=== PATIENT | male | born 1955 | race Caucasian/White ===

== ENCOUNTER 2017-08-23 12:30 | Emergency (ER) | payer BC ==
[~2017-08-23] VITALS: Ht 172.7 cm; Wt 86.2 kg
[~2017-08-23 12:30] MED LIST: ETODOLAC400 MG PO
--- NOTE | 2017-08-23 12:51 | Emergency Room Report ---
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 N Clinical Suspician of Infection? N Mental Status: 1 - Regular (Normal Baseline) Sepsis Risk:Low Sepsis Risk Have you (or family members/close friends) recently traveled outside the [place]? N If Yes, where/when: Have you had exposure to infectious disease within the past month? N TB? Other? Specify: 61 years old white male smoker chronic obstructive pulmonary disease hypertensive. Taking his blood pressure medicine 2 years ago. He developed one- week history of pain dull in character in between the shoulder blades radiating across his upper abdomen. It is occasionally worse with deep breath. He denies nausea vomiting or diarrhea. He denies palpitations or excessive shorts of breath. He had multiple surgeries for hernia and carpal tunnel syndrome. Source patient, RN notes reviewed, family, old records Exam Limitations no limitations ALLERGIES Coded Allergies: Penicillins (Intermediate, I-RASH 06/14/16) History Medical History General CAD? No Angina: No LA: No Hypertension? Yes Hyperlipidemia? No CHF? No DVT? No PE? No COPD? Yes Asthma? Yes Anemia? No GERD? No Gastric ulcers? No GI Bleed? No Hernia? Yes Thyroid Problems? Yes Hypothyroidism? Yes CVA? No Seizures? No Diabetes? No Renal Insuffiency? No End Stage Renal Disease? No UTI? No Stones? No BPH? No GB Disease: No Nephritic Syndrome? No Asplenia? No Hepatitis? No Sickle Cell Disease? No Arthritis? No Migraines? No Cataracts? No Glaucoma? No MRSA? No HIV? No TB? No Anxiety? No Depression? No Cancer? Yes Site: SKIN/FACE More? 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 Respiratory no symptoms reported Cardiovascular see HPI, chest pain Gastrointestinal no symptoms reported Genitourinary no symptoms reported. Musculoskeletal no symptoms reported Skin no symptoms reported Psychiatric/Neurological no symptoms reported Physical Exam Vital Signs Vital Signs Date Time Temp Pulse Resp B/P Pulse O2 O2 Flow FiO2 Ox Delivery Rate 08/23 1525 99.0 98 18 128/99 96 08/23 1449 99.0 98 18 128/99 96 08/23 1404 99.0 98 18 109/91 96 08/23 1326 98 18 109/91 96 08/23 1231 99.0 98 18 140/107 96 - WBC >12,000 or <4,000 or 10% bands? 2 or more SIRS Criteria Met? B/P:140/107 MAP:118 Creatinine >2.0? UA output<0.5ml/kg/hr for 2 hrs? Platelet count >100,000? Lactate >2.0mmol/1? INR >1.2 or PTT > than 60 sec? Evidence of Organ Dysfunction? Provider documented clinical suspician of infection? N Sepsis Criteria Count: 1 Sepsis Risk: Low Sepsis Risk General Appearance normal appearance, WD/WN Eye Exam - bilateral eye normal exam, bilateral eye PERRL, bilateral eye EOMI Ear, Nose, Throat hearing grossly normal, normal ENT inspection Neck normal inspection, non-tender, supple, full range of motion Respiratory Status Yes: trachea midline, chest symmetrical, non tender chest. No: respiratory distress. Lung Sounds bilateral: normal breath sounds, lungs clear. Cardiovascular normal exam, regular rate/rhythm, no peripheral edema, no gallop, no JVD, no murmur, no rub, normal peripheral pulses Peripheral Pulses Pulses normal Yes Gastrointestinal normal bowel sounds, normal exam, non tender, soft, no organomegaly Back normal inspection, no CVA tenderness, no vertebral tenderness Extremities non-tender, normal range of motion, normal inspection Neurologic alert, sampler radioactive waste II-XII nml as tested, normal exam, oriented x 3 Mental status normal mood/affect Skin intact, normal color, warm/dry, scars of prior surgeries Medical Decision Making LABS/Meds/Orders Pt receiving controlled substance in ED? No Results/Orders Laboratory Tests 08/23/17 1235: Lipase 119 08/23/17 1235: Sodium 135 L, Potassium 4.1, Chloride 100, Carbon Dioxide 27, BUN 8, Creatinine 1.0, Estimated Creat Clear 95, Estimated GFR (MDRD) 76, Glucose 99, Calcium 9.0, Total Bilirubin 0.7, AST 40 H, ALT 73, Alkaline Phosphatase 94, Creatine Kinase 90, CK-MB (CK-2) Rel Index 1.7, CK and CKMB Interp 1.5, Troponin I < 0.02, Total Protein 7.5, Albumin 3.8, Globulin 3.7 H, Albumin/Globulin Ratio 1.0 L, WBC 10.2, RBC 5.45, Hgb 17.8, Hct 52.9 H, MCV 97.0, RDW 14.0, Plt Count 202, Gran % 71.9, Gran # 7.3, Lymphocytes % 23.2, Monocytes % 4.9, Lymphocytes # 2.4, Monocytes # 0.5, PUBS MCHC 33.6, MCH 32.7 H Current Medication Orders Sig/Mahad Start time Last Medication Dose Route Stop Time Status Admin Albuterol/Ipratropium 0 .STK-MED ONE 08/23 1507 DC INH Iopamidol 75 ML ONCE ONE 08/23 1430 DC 08/23 IV 08/23 1431 1427 Sodium Chloride 10 ML ONCE ONE 08/23 1430 DC 08/23 IV 08/23 1431 1427 Metoprolol Tartrate 5 MG ONCE ONE 08/23 1300 DC 08/23 IV 08/23 1301 1337 Sodium Chloride 10 ML PRN PRN 08/23 1245 DCD IV 08/24 1239 Orders Procedure Date/time Status DIET-NOTHING BY MOUTH 08/23 D Active LIPASE 08/[address] CHEST SCAN REQ 08/[address] ABD/PELVIS REQ 08/23 1248 Complete ELECTROCARDIOGRAM REQUEST 08/23 1239 Active IV SALINE LOCK 08/23 1239 Active CBC WITH AUTO DIFF 08/23 1239 Complete CARDIAC ENZYMES 08/23 1239 Complete CHEM 12 PROFILE 08/23 1239 Complete 12 LEAD EKG-HENOKSON (INITIAL) 08/23 UNK Active CM/EKG CM/EKG EKG normal sinus is an 81/m no acute findings Departure Departure Time of Disposition 1455 Disposition DC Home or Self Care(routine) Clinical Impression Primary Impression: COPD (chronic obstructive pulmonary disease) Secondary Impressions: Atypical chest pain, Bladder disorder, unspecified, Spigelian hernia Condition STABLE Referrals MARIE NASH Additional Instructions I discussed with the patient or CTs abnormalities and details. I advised him for daily aspirin and a use a Combivent inhaler. He is alert and continued to stop smoking. He will be scheduled for an outpatient stress test in the morning. I advised him to see a urology and Gen. surgery for evaluation of the CT abnormalities. The patient and his verbalize understanding with the above discharge plan, he understands that he is still undergoing workup as an outpatient and to return if he is worse. Dr. jefferson Discharge Counseling Counseled pt/family regarding diagnosis, test results, medications/RX, home care, follow up needs Prescriptions Current Visit Scripts Aspirin (Aspirin Ec) 325 MG PO DAILY #30 ECT ALBUTEROL-IPRATROPIUM (Combivent Inhaler) 1 PUFFS IN Q12 #1 INH Ref 2 ED Critical Care Critical Care No If Critical Care minutes are documented, the time involved in the performance of seperately reportable procedures was not counted toward critical care time documented. I directly delivered medical care to this critically ill and/or injured patient. Timely evaluation and treatment was necessary to address the significant organ system(s) dysfunction present in this patient.
[2017-08-23 12:53] LABS: HEMOGLOBIN 17.8 g/dL (14.1-18.0)
[2017-08-23 12:54] LABS: LYMPH % 23.2 % (10-50)
[2017-08-23 12:55] LABS: LYMPH # 2.4 K/mm3 (0.7-4.5)
[2017-08-23 14:00] LABS: BUN 8 mg/dL (7-18)
[2017-08-23 14:01] LABS: GFR (ESTIMATED) 76 ML/MIN (>60)
--- NOTE | 2017-08-23 14:41 | RADIOLOGY REPORT PS360 ---
CT CHEST W/ CONTRAST INDICATION: Chest pain, pain between shoulder blades, upper abdominal pain UPPER ABD PAIN,CHEST PAIN,BETWEEN SHOULDER BLADES,HTN ORDERING PHYSICIAN: Maribel Preston MD PATIENT AGE: 61 years COMPARISON: 04/06/2014 TECHNIQUE: Axial images are obtained with contrast. Sagittal and coronal reformatted images are reviewed as well. FINDINGS: There is no evidence of aortic aneurysm or dissection. Atheromatous calcification involves the aortic arch. No mediastinal or hilar mass. No evidence of central pulmonary embolus although the study is not tailored for the ulnar arteries. There are minimal atelectatic changes in the lung bases. No lobar consolidation or collapse evident. There is mild bronchial thickening centrally and there are mild centrilobular emphysematous changes. No suspicious pulmonary nodules. No acute bony anomalies. Mild degenerative changes thoracic spine. The great vessels have an unremarkable appearance. IMPRESSION: 1. No evidence of aortic aneurysm or dissection or central pulmonary embolus. 2. Mild emphysematous changes with mild central bronchial thickening consistent with obstructive chronic bronchitis along with mild atelectatic or fibrotic changes in the lung bases. IMPRESSION:
--- NOTE | 2017-08-23 14:50 | RADIOLOGY REPORT PS360 ---
CT ABD PELVIS W/ CONTRAST CLINICAL INDICATION: UPPER ABD PAIN,CHEST PAIN,BETWEEN SHOULDER BLADES,HTN ORDERING PHYSICIAN: Maribel Preston MD PATIENT AGE: 61 years COMPARISON: None TECHNIQUE: Axial images obtained with sagittal and coronal reformats. PROCEDURE: Oral Contrast: None IV Contrast: 75 mL [id number]. FINDINGS: The liver, gallbladder, spleen, adrenal glands, and pancreas have an unremarkable appearance. No evidence of abdominal aortic aneurysm, dissection, or occlusion. No renal or ureteral calculi or hydronephrosis. There is mild thickening of the urinary bladder wall is nonspecific but may be seen with urinary tract infection. Scattered small lymph nodes are present in the retroperitoneum. There is some heterogeneous density involving the base of the urinary bladder toward the left. This area measures approximately 3 cm best seen on the coronal reformatted images. Mass, infection, or hematoma is a consideration. Cystoscopy may be of further value. No intestinal obstruction or free air. No evidence of appendicitis or diverticulitis. Scattered diverticula are present within the colon. There is anastomosis in the sigmoid colon region. There is a defect within the left lateral abdominal wall consistent with a spigelian hernia. This defect is 2.3 cm in width. There is fat within the hernia. No acute bony anomalies. IMPRESSION: 1. No evidence of aortic aneurysm or acute retroperitoneal hemorrhage. 2. Lobular heterogeneous density in the base of the the urinary bladder toward the left which may be seen with neoplasm, infection, or hemorrhage. Cystoscopy may be of further value. There is mild bladder wall thickening which may be seen with cystitis. 3. Spigelian hernia containing fat in the left lower abdomen laterally
[2017-08-23] MEDS ORDERED: ALBUTEROL-1 PUFF/14. IN (15:03)
[2017-08-23] MEDS ORDERED: ASPIRIN EC325 M1 PO (15:03)
[2017-08-23 15:25] VITALS: BP 128/99
== END 2017-08-23 15:27 | disposition home or self-care (01) ==
LOC: ER 12:30
PROVIDERS: Emergency Medicine
DX: R07.89 Other chest pain (principal); K43.9 Ventral hernia without obstruction or gangrene; I10 Essential (primary) hypertension; F17.210 Nicotine dependence, cigarettes, uncomplicated; J44.9 Chronic obstructive pulmonary disease, unspecified; Z88.0 Allergy status to penicillin; E03.9 Hypothyroidism, unspecified
CPT/HCPCS: Q9967

== ENCOUNTER → 2017-08-24 | Outpatient (CLI) | payer BC ==
--- NOTE | 2017-08-28 14:50 | RADIOLOGY REPORT PS360 ---
CARDIOLITE SPECT MYOCARDIAL PERFUSION SCAN, REST AND STRESS: EXERCISE STRESS [facility] REVIEW QGS EF AND WALL MOTION EVALUATION: QPS - PERFUSION EVALUATION HISTORY: Chest pain, SOB, Tobacco use DOSE: 11.26 mCi technetium 99m mibi intravenously at rest followed by 28.4 mCi technetium 99m mibi following the intravenous ministration of 0.4 mg of Lexiscan. Resting blood pressure is 126/83. Stress blood pressure 121/68. FINDINGS: Ejection fraction is calculated to be 69% Stress images reveal severely decreased activity throughout the mid anterior apical wall septum and entire inferior wall portion of the lateral wall with no significant change in the rest images. Gated images calculated ejection fraction of 69% with normal wall motion. . IMPRESSION: High risk abnormal stress test. Stress images suggest previous nontransmural myocardial infarction involving the mid anterior apical inferior and lateral wall accompanied by normal wall motion. Normal ejection fraction normal wall motion. This is an abnormal stress test although I see no clear-cut evidence of ischemia resting images appear severely abnormal
--- NOTE | 2017-08-28 14:50 | RADIOLOGY REPORT PS360 ---
CARDIOLITE SPECT MYOCARDIAL PERFUSION SCAN, REST AND STRESS: EXERCISE STRESS [facility] REVIEW QGS EF AND WALL MOTION EVALUATION: QPS - PERFUSION EVALUATION HISTORY: Chest pain, SOB, Tobacco use DOSE: 11.26 mCi technetium 99m mibi intravenously at rest followed by 28.4 mCi technetium 99m mibi following the intravenous ministration of 0.4 mg of Lexiscan. Resting blood pressure is 126/83. Stress blood pressure 121/68. FINDINGS: Ejection fraction is calculated to be 69% Stress images reveal severely decreased activity throughout the mid anterior apical wall septum and entire inferior wall portion of the lateral wall with no significant change in the rest images. Gated images calculated ejection fraction of 69% with normal wall motion. . IMPRESSION: High risk abnormal stress test. Stress images suggest previous nontransmural myocardial infarction involving the mid anterior apical inferior and lateral wall accompanied by normal wall motion. Normal ejection fraction normal wall motion. This is an abnormal stress test although I see no clear-cut evidence of ischemia resting images appear severely abnormal
== END ==
LOC: RAD 11:50
DX: R07.89 Other chest pain (principal)

== ENCOUNTER 2017-09-26 23:13 | Observation (INO) | payer BC ==
[~2017-09-26] VITALS: Ht 172.7 cm; Wt 86.9 kg
[~2017-09-26 23:13] MED LIST changes: +ALBUTEROL-1 PUFF/14. IN; +ASPIRIN EC325 M1 PO
[2017-09-26 23:18] VITALS: BP 146/95
--- OUTSIDE RECORDS SUMMARY | 2017-09-26 23:28 | External Medical Summary Rpt | CCD ---
Author GHULAM Jeffers Address Unknown Phone [email or web address] Purpose Continuity of Care Document - 08-23-2017 through 2016
--- OUTSIDE RECORDS SUMMARY | 2017-09-26 23:28 | External Medical Summary Rpt | CCD ---
Author Author [employer] Address Unknown Phone Unavailable Purpose Continuity of Care Document - through 2016
--- OUTSIDE RECORDS SUMMARY | 2017-09-26 23:28 | External Medical Summary Rpt | CCD ---
Author GHULAM Jeffers Address Unknown Phone Purpose Continuity of Care Document - 08-23-2017 through 2016
--- OUTSIDE RECORDS SUMMARY | 2017-09-26 23:28 | External Medical Summary Rpt | CCD ---
Demographics Preferred Language [place] Marital Status Unknown Congregational Affiliation Unknown Race Unknown Ethnic Group Unknown Author Author , GHULAM PARMAR Address Unknown Phone Immunization No patient found.
--- OUTSIDE RECORDS SUMMARY | 2017-09-26 23:28 | External Medical Summary Rpt | CCD ---
Demographics Preferred Language [place] Marital Status Unknown Hoahaoism Affiliation Unknown Race Unknown Ethnic Group Unknown Author Author , GHULAM PARMAR Address Unknown Phone Immunization No patient found.
--- OUTSIDE RECORDS SUMMARY | 2017-09-26 23:28 | External Medical Summary Rpt ---
Author Author SULEMACYNTHIA Tinoco, GHULAM [employer] Address Unknown Phone Unavailable Results Lipase [Enzymatic activity/volume] in Serum or Plasma Observa Value Referen Units Interpr Notes Date tion ce etation Range Lipase 73 - 393 U/L Normal No Sep 28 [Enzymati informati 2017 c on in 12:35 PM activity/ source volume] data in Serum or Plasma CBC W Auto Differential panel in Blood Observa Value Referen Units Interpr Notes Date tion ce etation Range Granulocy 1.3 - 8.0 K/mm3 Normal No Sep 28 tone informati 2016 [#/volume on in 12:35 PM ] in source Blood by data Automated count Granulocy 37.0 - % Normal No Sep 28 tone/100 80.0 informati 2017 leukocyte on in 12:35 PM s in source Blood by data Automated count Hematocri 42.0 - % High No Sep t [Volume 52.0 informati 2017 on in 12:35 PM Fraction] source of Blood data Hemoglobi 14.1 - g/dL Normal No Sep n 18.0 informati 2016 [Mass/vol on in 12:35 PM ume] in source Blood data Lymphocyt 0.7 - 4.5 K/mm3 Normal No Sep 28 es informati 2016 [#/volume on in 12:35 PM ] in source Unspecifi data ed specimen by Automated count Lymphocyt 10 - 50 % Normal No Sep 28 es informati 2017 [#/volume on in 12:35 PM ] in source Unspecifi data ed specimen by Automated count Erythrocy 27 - 31.2 pg High No Sep 28 te mean informati 2017 corpuscul on in 12:35 PM ar source hemoglobi data n [Entitic mass] Erythrocy 31.8 - g/dl Normal No Sep te mean 35.4 informati 2017 corpuscul on in 12:35 PM ar source hemoglobi data n concentra tion [Mass/vol ume] by Automated count Erythrocy 82.2 - fL Normal No Aug 23 te mean 97.8 informati 2017 corpuscul on in 12:35 PM ar volume source [Entitic data volume] by Automated count Monocytes 0.1 - 1.0 K/mm3 Normal No Aug 23 inform2016 [#/volume on in 12:35 PM ] in source Blood by data Automated count Monocytes 1.7 - 9.3 % Normal No Jul 28 /100 2016 leukocyte on in 12:35 PM s in source Blood by data Automated count Platelets 142 - 424 K/mm3 Normal No Aug 23 inform2016 [#/volume on in 12:35 PM ] in source Blood data Erythrocy 4.6 - 6.2 M/mm3 Normal No Aug 23 tone inform2016 [#/volume on in 12:35 PM ] in source Amniotic data fluid Erythrocy 11.5 - % Normal No Aug 23 te 17.5 inform2016 distribut on in 12:35 PM ion width source [Entitic data volume] by Automated count Leukocyte 4.8 - K/mm3 Normal No Aug 23 s 10.8 inform2016 [#/volume on in 12:35 PM ] in source Blood data
--- OUTSIDE RECORDS SUMMARY | 2017-09-26 23:28 | External Medical Summary Rpt ---
Author Author SULEMACYNTHIA Tinoco, GHULAM [employer] Address Unknown Phone Unavailable [...]
--- NOTE | 2017-09-26 23:37 | Emergency Room Report ---
History of Present Illness Time Seen by MD Jovel Presenting Problem in Triage Pt arrived:Walked Presenting Problem:PATIENT STATES HE WAS SITTING ON HIS BED COUGHING, NEXT THING HE REMEMBERS HIS WAS PICKING HIM UP FROM THE FLOOR. STATES HE HAS HAD A COUPLE EPISODES OVER THE YEARS OF COUGHING UNTIL HE PASSED OUT. Onset of symptoms date/time:09/26/1712/12/2199 or onset unknown for: Treatment Prior to Arrival: [facility] [employer] [employer] Provided by: Sepsis Risk Assessment: Temp: 98.6 B/P: 146/95 MAP: 112 Pulse: 91 Resp: 22 Recent fever? N Clinical Suspician of Infection? N Mental Status: 1 - Regular (Normal Baseline) Sepsis Risk:Possible Sepsis Risk Have you (or family members/close friends) recently traveled outside the [place]? N If Yes, where/when: Have you had exposure to infectious disease within the past month? TB? Other? Specify: Source patient, RN notes reviewed, family, old records Exam Limitations no limitations Comment pt with episode of cough and apparent syncope episode and presents with rt rib pain - no def sz and no incont - pt with hx of chest pain in recent with gxt - reports reviewed and abn and pt reports occ chest pain - Cardiac Chest Pain Chest pain indicative of cardiac No Timing/Duration this evening Severity moderate ALLERGIES Coded Allergies: Penicillins (Intermediate, I-RASH 06/14/16) Home Medications Active Scripts Aspirin (Aspirin Ec) 325 MG PO DAILY #30 ECT Prov: 08/23/17 ALBUTEROL-IPRATROPIUM (Combivent Inhaler) 1 PUFFS IN Q12 #1 INH Ref 2 Prov: 08/23/17 History Medical History General CAD? No Angina: No DC: No Hypertension? Yes Hyperlipidemia? No CHF? No DVT? No PE? No COPD? Yes Asthma? Yes Anemia? No GERD? No Gastric ulcers? No GI Bleed? No Hernia? Yes Thyroid Problems? Yes Hypothyroidism? Yes CVA? No Seizures? No Diabetes? No Renal Insuffiency? No End Stage Renal Disease? No UTI? No Stones? No BPH? No GB Disease: No Nephritic Syndrome? No Asplenia? No Hepatitis? No Sickle Cell Disease? No Arthritis? No Migraines? No Cataracts? No Glaucoma? No MRSA? No HIV? No TB? No Anxiety? No Depression? No Cancer? Yes Site: SKIN/FACE More? No Immunization Hx DT/Tetanus Unknown Surgical Hx Previous Surgery?Y SKIN CANCER TO FACE LEFT SHOULDER HERNIA X 5 COLON RESECTION CARPAL TUNNEL LEFT WRIST Social History Smoking Hx Smoker: Current Every Day Smoker Tobacco: Yes Type Cigarettes Packs/day 2 1/2 - 3 Packs Alcohol Alcohol: Yes Drugs none Review of Systems All Other Systems Reviewed and Negative Constitutional denies fever Eyes denies drainage ENT denies: ear pain, epistaxis, throat pain. Respiratory see HPI, cough, denies shortness of breath, denies wheezing Cardiovascular denies chest pain, denies syncope Gastrointestinal denies abdominal pain, denies diarrhea, denies vomiting Genitourinary denies: dysuria, frequency, hesitancy, hematuria. Musculoskeletal denies back pain, denies joint pain, denies joint swelling, denies neck pain Skin denies rash Psychiatric/Neurological denies headache, denies seizure Physical Exam Vital Signs Vital Signs Date Time Temp Pulse Resp B/P Pulse O2 O2 Flow FiO2 Ox Delivery Rate 09/27 0004 113 20 134/86 94 09/26 2318 98.6 91 22 146/95 92 - WBC >12,000 or <4,000 or 10% bands? 2 or more SIRS Criteria Met? B/P:158/94 MAP:112 Creatinine >2.0? UA output<0.5ml/kg/hr for 2 hrs? Platelet count >100,000? Lactate >2.0mmol/1? INR >1.2 or PTT > than 60 sec? Evidence of Organ Dysfunction? Provider documented clinical suspician of infection? N Sepsis Criteria Count: 2 Sepsis Risk: Possible Sepsis Risk General Appearance no apparent distress Eye Exam - bilateral eye PERRL, bilateral eye EOMI Ear, Nose, Throat normal ENT inspection, no evid of tongue biting Neck non-tender Respiratory Status Yes: tender on palpation (tender rt rib/ no sq air). No: respiratory distress. Lung Sounds right: decreased breath sounds. 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 No Results/Orders Laboratory Tests 09/27/17 0035: Urine Color YELLOW, Urine Appearance CLEAR, Urine pH 6.0, Ur Specific Clive <= 1.005, Urine Protein NEGATIVE, Urine Ketones NEGATIVE, Urine Blood NEGATIVE, Urine Nitrate NEGATIVE, Urine Bilirubin NEGATIVE, Urine Urobilinogen 0.2, Ur Leukocyte Esterase NEGATIVE, Urine Glucose NEGATIVE 09/26/177: Sodium 134 L, Potassium 3.7, Chloride 98, Carbon Dioxide 25, BUN 9, Creatinine 1.0, Estimated Creat Clear 95, Estimated GFR (MDRD) 76, Glucose 107 H, Calcium 8.9, Total Bilirubin 0.5, AST 40 H, ALT 68, Alkaline Phosphatase 99, Creatine Kinase 99, CK-MB (CK-2) Rel Index 1.5, CK and CKMB Interp 1.5, Troponin I < 0.02 , Total Protein 7.0, Albumin 3.7, Globulin 3.3 H, Albumin/Globulin Ratio 1.1, WBC 10.2, RBC 5.39, Hgb 17.4, Hct 51.3, MCV 95.2, RDW 12.2, Plt Count 197, MPV 7.3 L, Gran % 61.2, Gran # 6.3, Lymphocytes % 26.5, Monocytes % 6.2, Eosinophils % 5.1, Basophils % 1.0, Lymphocytes # 2.7, Monocytes # 0.6, Eosinophils # 0.5 H, Basophils # 0.1, PUBS MCHC 34.0, MCH 32.4 H, Alcohols 108 H Current Medication Orders Sig/Mahad Start time Last Medication Dose Route Stop Time Status Admin Sodium Chloride 10 ML PRN PRN 09/26 2345 AC IV 09/27 2331 Orders Procedure Date/time Status URINALYSIS/COMPLETE 09/27 43 Complete Decision to admit 09/27 33 Active ALCOHOL 09/26 2335 Complete [id number] VIEWS 09/26 2333 Active CHEST(2 VIEWS-NOT PORTABLE) 09/26 2333 Active ELECTROCARDIOGRAM REQUEST 09/26 2332 Active IV SALINE LOCK 09/26 2332 Active CBC WITH AUTO DIFF 09/26 2332 Complete CARDIAC ENZYMES 09/26 2332 Complete CHEM 12 PROFILE 09/26 2332 Complete CM/EKG 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 ST/Twave chgs XRAY/CT/US XRAY/CT/US XRAY chest, rib XR interpretation by reviewed by me Xray Results abnormal (rib fx ) BULL Score for N-Stemi/Angina BULL N-STEMI SCORE BULL N-STEMI SCORE Response Value Age of patient Less than 65 yrs 0 Number of risk factors for CAD Presence of 3 or more 1 Prior coronary artery stenosis (seen in angiography) Less than 50% 0 ST-Segment deviation on ECG (>1 min) Absent 0 Prior aspirin intake ASA intake in last 7 days 1 Severe anginal chest pain 2 or more episodes/24hr 1 Elevated cardiac markers(CK-MB or troponin) Absent 0 Total 3 Risk Stratification 3-4= Medium Risk Patients Departure Departure Time of Disposition 0037 Disposition Still a Patient Clinical Impression Primary Impression: Syncope Qualifiers: Syncope type: unspecified Qualified Code: R55 - Syncope and collapse Secondary Impressions: Abnormal thallium stress test Alcohol intoxication Qualifiers: Complication of substance-induced condition: uncomplicated Qualified Code: F10.920 - Alcohol use, unspecified with intoxication, uncomplicated COPD (chronic obstructive pulmonary disease) Qualifiers: COPD type: unspecified COPD Qualified Code: J44.9 - Chronic obstructive pulmonary disease, unspecified Rib fracture Qualifiers: Encounter type: initial encounter Rib fracture type: single rib Fracture type: closed Laterality: right Qualified Code: S22.31XA - Fracture of one rib, right side, initial encounter for closed fracture Condition STABLE Referrals MARIE NASH (Family) discussed with dr gallagher and dr zarate ED Critical Care Critical Care No at 0101
[2017-09-26 23:49] LABS: HEMOGLOBIN 17.4 g/dL (14.1-18.0); LYMPH # 2.7 K/mm3 (0.7-4.5); LYMPH % 26.5 % (10-50)
[2017-09-27] VITALS (24 sets, daily range): BP systolic 112–163; BP diastolic 54–109
[2017-09-27 00:11] LABS: BUN 9 mg/dL (7-18); GFR (ESTIMATED) 76 ML/MIN (>60)
--- OUTSIDE RECORDS SUMMARY | 2017-09-27 00:46 | External Medical Summary Rpt | CCD ---
Author Author , GHULAM PARMAR Address Unknown Phone [email or web address] Purpose Continuity of Care Document - 08-23-2017 through 2016 Results Labs Lab Lab Date Result Refere Interp Status Commen Order Detail nces retati t Range on Serum or plasma ethanol measurement ([facility] (09-26-2017 23:37) Serum = 108 0-99 complet or 017 mg/dL ed plasma 23:37 ethanol measure ment ([facility] Comment: ANY ALCOHOL > OR = 80 MG/DL IS CONSIDERED LEGALLY Comment: INTOXICATED UNDER [facility] LAW. Cardiac enzymes (09-26-2017 23:37) Serum = 1.5 0-4.0 complet or 017 U/L ed plasma 23:37 creatin e kinase MB (CK-M Serum = 1.5 0.0-3.6 complet or 017 ng/mL ed plasma 23:37 creatin e kinase MB measu Serum = 99 39-308 complet or 017 U/L ed plasma 23:37 creatin e kinase measure m Serum < 0.02 0.00-0. complet or 017 ng/mL 06 ed plasma 23:37 troponi n i.cardi ac measu Comprehensive metabolic panel (09-26-2017 23:37) Serum = 1.1 1.1-1.8 complet or 017 ed plasma 23:37 albumin /globul in mass ra Serum = 3.7 3.4-5.0 complet or 017 gm/dL ed plasma 23:37 albumin measure ment (mas Serum = 99 46-116 complet or 017 U/L ed plasma 23:37 alkalin e phospha tase omid Serum = 0.5 0.2-1.0 complet or 017 mg/dL ed plasma 23:37 total bilirub in measure m Serum = 9 7-18 complet or 017 mg/dL ed plasma 23:37 urea nitroge n measure men Serum = 8.9 8.5-10. complet or 017 mg/dL 1 ed plasma 23:37 calcium measure ment (mas Serum = 98 98-107 complet or 017 mmoL/L ed plasma 23:37 chlorid e measure ment (mo Carbon = 25 21.0-32 complet dioxide 017 mmoL/L .0 ed 23:37 measure ment Serum = 1.0 0.70-1. complet or 017 mg/dL 30 ed plasma 23:37 creatin ine measure ment ( Estimat = 95 50-200 complet ion of 017 ML/MIN ed creatin 23:37 ine renal clearan ce Protein = 7.0 6.4-8.2 complet total 017 gm/dL ed ser/adrianna 23:37 s ALT = 68 12-78 complet (SGPT) 017 U/L ed ser/adrianna 23:37 s Serum = 40 15-37 complet or 017 U/L ed plasma 23:37 asparta te aminotr ansfera Serum = 134 136-145 complet sodium 017 mmoL/L ed measure 23:37 ment Serum = 3.7 3.5-5.1 complet potassi 017 mmoL/L ed um 23:37 measure ment Serum = 107 74-106 complet or 017 mg/dL ed plasma 23:37 glucose measure ment (mas Serum = 3.3 1.3-3.2 complet globuli 017 gm/dL ed n 23:37 measure ment (mass/v olume) Estimat = 76 >60 complet ed 017 ML/MIN ed glomeru 23:37 lar filtrat ion rate (GF Comment: REFERENCE RANGE: >60 ML/MIN/1.73 SQUARE METERS Comment: If this patient is -Macanese, then multiply the Comment: result by 1.210. CBC w auto diff (09-26-2017 23:37) Automat = 0.1 0-0.2 complet ed 017 K/MM3 ed blood 23:37 basophi l count (count/ vo Baso % = 1.0 % 0.1-2.0 complet 017 ed 23:37 Automat = 0.5 0.0-0.4 complet ed 017 K/mm3 ed blood 23:37 eosinop hil count Automat = 5.1 % 0.1-12. complet ed 017 0 ed blood 23:37 eosinop hils/10 0 leukocy t Blood = 6.3 1.3-8.0 complet granulo 017 K/mm3 ed cytes 23:37 automat ed count (numb Granulo = 61.2 37.0-80 complet cyte 017 % .0 ed percent 23:37 age Blood = 51.3 42.0-52 complet hematoc 017 % .0 ed rit 23:37 (volume fractio n) Blood = 17.4 14.1-18 complet hemoglo 017 g/dL .0 ed bin 23:37 measure ment (mass/v olum Absolut = 2.7 0.7-4.5 complet e 017 K/mm3 ed lymphoc 23:37 yte count Lymphoc = 26.5 10-50 complet yte 017 % ed count, 23:37 blood, automat ed Mean = 32.4 27-31.2 complet corpusc 017 pg ed ular 23:37 hemoglo bin (MCH) determ Automat = 34.0 31.8-35 complet ed 017 g/dl .4 ed erythro 23:37 cyte mean corpusc ular h Automat = 95.2 82.2-97 complet ed 017 fl .8 ed erythro 23:37 cyte mean corpusc ular v Absolut = 0.6 0.1-1.0 complet e 017 K/mm3 ed monocyt 23:37 e count [place] % = 6.2 % 1.7-9.3 complet 017 ed 23:37 Automat = 7.3 7.4-10. complet ed 017 fl 4 ed blood 23:37 platele t mean volume omid Blood = 197 142-424 complet platele 017 K/mm3 ed t count 23:37 Red = 5.39 4.6-6.2 complet blood 017 M/mm3 ed cell 23:37 count Automat = 12.2 11.5-17 complet ed 017 % .5 ed erythro 23:37 cyte distrib ution width Blood = 10.2 4.8-10. complet leukocy 017 K/MM3 8 ed tone 23:37 count (number /volume )
--- OUTSIDE RECORDS SUMMARY | 2017-09-27 00:46 | External Medical Summary Rpt | CCD ---
Demographics Preferred Language Moroccan Marital Status Unknown Baptist Affiliation Unknown Race Unknown Ethnic Group Unknown Author Author , GHULAM PARMAR Address Unknown Phone Immunization No patient found.
--- OUTSIDE RECORDS SUMMARY | 2017-09-27 00:46 | External Medical Summary Rpt | CCD ---
Demographics Preferred Language Namibian Marital Status Unknown Jewish Affiliation Unknown Race Unknown Ethnic Group Unknown Author Author , GHULAM PARMAR Address Unknown Phone Immunization No patient found.
--- OUTSIDE RECORDS SUMMARY | 2017-09-27 00:46 | External Medical Summary Rpt | CCD ---
Author Author , GHULAM PARMAR Address Unknown Phone [email or web address] Purpose Continuity of Care Document - 08-23-2017 through 2016 Results Labs Lab Lab Date Result Refere Interp Status Commen Order Detail nces retati t Range on Serum or plasma ethanol measurement ([facility] (09-26-2017 23:37) Serum = 108 0-99 complet or 017 mg/dL ed plasma 23:37 ethanol measure ment ([facility] Comment: ANY ALCOHOL > OR = 80 MG/DL IS CONSIDERED LEGALLY Comment: INTOXICATED UNDER [facility] LAW. Cardiac enzymes (09-26-2017 23:37) Serum [...] SQUARE METERS Comment: If this patient is -Romanian, then multiply the Comment: result by 1.210. [...] 017 K/mm3 ed monocyt 23:37 e count [place] % = 6.2 % 1.7-9.3 complet 017 [...]
--- OUTSIDE RECORDS SUMMARY | 2017-09-27 00:47 | External Medical Summary Rpt ---
Author Author [employer], [employer] Organization [employer] Address Unknown Phone Unavailable Results CBC W Auto Differential panel in Blood Observa Value Referen Units Interpr Notes Date tion ce etation Range Basophils 0 - 0.2 K/MM3 Normal No Sep 26 inform2016 [#/volume on in 11:37 PM ] in source Blood by data Automated count Basophils 0.1 - 2.0 % Normal No Sep 26 / inform2016 leukocyte on in 11:37 PM s in source Blood by data Automated count Eosinophi 0.0 - 0.4 K/mm3 High No Sep 26 ls ati 2016 [#/volume on in 11:37 PM ] in source Blood by data Automated count Eosinophi 0.1 - % Normal No Sep 26 ls/100 12.0 2016 leukocyte on in 11:37 PM s in source Blood by data Automated count Granulocy 1.3 - 8.0 K/mm3 Normal No Sep 26 tone 2016 [#/volume on in 11:37 PM ] in source Blood by data Automated count Granulocy 37.0 - % Normal No Sep 26 tone/100 80.0 2016 leukocyte on in 11:37 PM s in source Blood by data Automated count Hematocri 42.0 - % Normal No Sep 26 t [Volume 52.0 ati 2016 on in 11:37 PM Fraction] source of Blood data Hemoglobi 14.1 - g/dL Normal No Sep 26 n 18.0 2016 [Mass/vol on in 11:37 PM ume] in source Blood data Lymphocyt 0.7 - 4.5 K/mm3 Normal No Sep 26 es 2016 [#/volume on in 11:37 PM ] in source Unspecifi data ed specimen by Automated count Lymphocyt 10 - 50 % Normal No Sep 26 es 2016 [#/volume on in 11:37 PM ] in source Unspecifi data ed specimen by Automated count Erythrocy 27 - 31.2 pg High No Sep 26 te mean 2016 corpuscul on in 11:37 PM ar source hemoglobi data n [Entitic mass] Erythrocy 31.8 - g/dl Normal No Sep 26 te mean 35.4 inform2016 corpuscul on in 11:37 PM ar source hemoglobi data n concentra tion [Mass/vol ume] by Automated count Erythrocy 82.2 - fl Normal No Sep 26 te mean 97.8 inform2016 corpuscul on in 11:37 PM ar volume source [Entitic data volume] by Automated count Monocytes 0.1 - 1.0 K/mm3 Normal No Sep 26 informati 2016 [#/volume on in 11:37 PM ] in source Blood by data Automated count Monocytes 1.7 - 9.3 % Normal No Sep 26 /100 inform2016 leukocyte on in 11:37 PM s in source Blood by data Automated count Platelet 7.4 - fl Low No Sep 26 mean 10.4 inform2016 volume on in 11:37 PM [Entitic source volume] data in Blood by Automated count Platelets 142 - 424 K/mm3 No No Sep 26 informati informati 2016 [#/volume on in on in 11:37 PM ] in source source Blood data data Erythrocy 4.6 - 6.2 M/mm3 Normal No Sep 26 tone inform2016 [#/volume on in 11:37 PM ] in source Amniotic data fluid Erythrocy 11.5 - % Normal No Sep 26 te 17.5 2016 distribut on in 11:37 PM ion width source [Entitic data volume] by Automated count Leukocyte 4.8 - K/MM3 Normal No Sep 26 s 10.8 informati 2016 [#/volume on in 11:37 PM ] in source Blood data Ethanol [Mass/volume] in Serum or Plasma Observa Value Referen Units Interpr Notes Date ti ce etation Range Ethanol 0 - 99 mg/dL High ANY Sep 26 [Mass/vol ALCOHOL > 2017 ume] in OR = 80 11:37 PM Serum or MG/DL IS Plasma CONSIDERE D LEGALLYIN TOXICATED UNDER [place] [employer] LAW. Lipase [Enzymatic activity/volume] in Serum or Plasma Observa Value Referen Units Interpr Notes Date tion ce etation Range Lipase 73 - 393 U/L Normal No Sep 28 [Enzymati informati 2016 c on in 12:35 PM activity/ source volume] data in Serum or Plasma CBC W Auto Differential panel in Blood Observa Value Referen Units Interpr Notes Date tion ce etation Range Granulocy 1.3 - 8.0 K/mm3 Normal No Sep 28 tone inform2016 [#/volume on in 12:35 PM ] in source Blood by data Automated count Granulocy 37.0 - % Normal No Sep 28 tone/100 80.0 inform2016 leukocyte on in 12:35 PM s in source Blood by data Automated count Hematocri 42.0 - % High No Sep 28 t [Volume 52.0 informati 2016 on in 12:35 PM Fraction] source of Blood data Hemoglobi 14.1 - g/dL Normal No Sep 28 n 18.0 inform2016 [Mass/vol on in 12:35 PM ume] in source Blood data Lymphocyt 0.7 - 4.5 K/mm3 Normal No Sep 28 es inform2016 [#/volume on in 12:35 PM ] in source Unspecifi data ed specimen by Automated count Lymphocyt 10 - 50 % Normal No Sep 28 es inform2016 [#/volume on in 12:35 PM ] in source Unspecifi data ed specimen by Automated count Erythrocy 27 - 31.2 pg High No Sep 28 te mean inform2016 corpuscul on in 12:35 PM ar source hemoglobi data n [Entitic mass] Erythrocy 31.8 - g/dl Normal No Sep 28 te mean 35.4 inform2016 corpuscul on in 12:35 PM ar source hemoglobi data n concentra tion [Mass/vol ume] by Automated count Erythrocy 82.2 - fL Normal No Sep 28 te mean 97.8 inform2016 corpuscul on in 12:35 PM ar volume source [Entitic data volume] by Automated count Monocytes 0.1 - 1.0 K/mm3 Normal No Sep 28 2016 [#/volume on in 12:35 PM ] in source Blood by data Automated count Monocytes 1.7 - 9.3 % Normal No Sep /100 inform2016 leukocyte on in 12:35 PM s in source Blood by data Automated count Platelets 142 - 424 K/mm3 Normal No Sep 28 inform2016 [#/volume on in 12:35 PM ] in source Blood data Erythrocy 4.6 - 6.2 M/mm3 Normal No Sep 28 tone inform2016 [#/volume on in 12:35 PM ] in source Amniotic data fluid Erythrocy 11.5 - % Normal No Jul 28 te 17.5 informati 2017 distribut on in 12:35 PM ion width source [Entitic data volume] by Automated count Leukocyte 4.8 - K/mm3 Normal No Jul 28 s 10.8 informati 2017 [#/volume on in 12:35 PM ] in source Blood data
--- OUTSIDE RECORDS SUMMARY | 2017-09-27 00:47 | External Medical Summary Rpt ---
[...] IS Plasma CONSIDERE D LEGALLYIN TOXICATED UNDER [place] [employer] LAW. Lipase [Enzymatic activity/volume] in Serum or [...]
[2017-09-27 00:48] LABS: URINE BILIRUBIN - DIPSTICK NEGATIVE (NEG); URINE BLOOD NEGATIVE (NEG)
[2017-09-27 01:02] LABS: URINE SQUAMOUS CELLS OCC #/hpf (OCC)
--- NOTE | 2017-09-27 06:30 | RADIOLOGY REPORT PS360 ---
[id number] VIEWS HISTORY: Right rib pain following injury FALL, PAIN IN RIBS ORDERING PHYSICIAN: Laurent Samuel MD PATIENT AGE: 61 years COMPARISON: None FINDINGS: Multiple views of the right ribs were obtained. There is a minimally displaced right fifth rib fracture laterally with some mild associated pleural thickening. No other anomalies apparent IMPRESSION: Minimal displaced right fifth rib fracture
--- NOTE | 2017-09-27 06:31 | RADIOLOGY REPORT PS360 ---
CHEST(2 VIEWS-NOT PORTABLE) HISTORY: Right-sided rib pain/right-sided chest pain following injury FALL, PAIN IN RIBS ORDERING PHYSICIAN: Laurent Samuel MD PATIENT AGE: 61 years COMPARISON: 01/27/2016 FINDINGS: The cardiomediastinal silhouette and pulmonary vascularity are within normal limits. Minimal displaced fracture involves the right fifth rib laterally with some underlying pleural thickening. No evidence of pneumothorax. No lobar consolidation or collapse. Probable bilateral nipple shadows. IMPRESSION: Acute minimally displaced right fifth rib fracture with some mild underlying pleural thickening
--- NOTE | 2017-09-27 07:15 | CONSULT NOTE ---
Standard Demographics Patient Demo Date of Consultation: 09/27/17 Referring Provider: Angely Pedraza MD Reason for Consultation: syncope, abnormal stress test PRIMARY DIAGNOSIS: SYNCOPE Problem list Problem list: 1. Tobacco use A. Chronic obstructive pulmonary disease 2. Hypertension 3. History of bilateral carpal tunnel surgery 4. Mild carotid artery stenosis by ultrasound 2016. History of present illness: History of present illness: 61-year-old white male was awakened during the night due to coughing spell. He sat up on the side of the bed to continue coughing and reportedly passed out. He relates some right-sided chest pain after the fall with x-ray showing right- sided rib fracture. He was admitted for observation. Recent stress test in July showed evidence of previous myocardial infarction without ischemia. It was read as a high risk abnormal stress test. Troponins have returned normal overnight. Electrocardiogram is sinus with some nonspecific ST-T abnormalities. Cardiology consulted for evaluation. Patient does relate previous episodes of passing out over the last 12 years which all seem to correlate with extreme laughing or coughing episodes. 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 HERNIA X 5 COLON RESECTION CARPAL TUNNEL LEFT WRIST Allergies Coded Allergies: Penicillins (Intermediate, I-RASH 06/14/16) Home medications: Active Scripts Aspirin (Aspirin Ec) 325 MG PO DAILY #30 ECT Prov: 08/23/17 Reported Medications Albuterol Sulfate (Ventolin Hfa) 1 PUFF IH BID #18 INH Current Medications: Current Medications Acetaminophen 650 MG Q4HP PRN PO (UNV) Morphine Sulfate 2 MG Q2HP PRN IV (UNV) Nicotine 21 MG DAILYP PRN TD (UNV) Ondansetron HCl 4 MG Q6HP PRN IV (UNV) Sodium Chloride 1,000 ML .Q20H IV (UNV) Ticagrelor 180 MG ONCE ONE PO (DC) Ticagrelor 0 .STK-MED ONE PO (DC) Sodium Chloride 10 ML PRN PRN IV Immunization HX DT/Tetanus Unknown Flu Refused Pneumonia Never Had TB Test in last year No Family history Family HX Family Hx Insignificant No Diabetes Yes CAD Yes Hypertension No Hyperlipidemia No Cancer Yes TB No Social Hx: Smoking HX Tobacco Yes Type Cigarettes Packs/day 2 1/2 - 3 PACKS Are you/the child exposed to second-hand smoke: Yes Alcohol Alcohol: Yes How much do you drink More Than 10 Drinks/Day For how long Longer Than 5 Years When was your last drink Less Than 12 Hours Ago Hx of Drug Use Drug Use? No Patien't marital status is Patient's support system is good Review of systems: Constitutional No: no symptoms reported. Respiratory see HPI, cough, SOB with excertion, wheezing. Cardiovascular chest pain Gastrointestinal/Abdominal No no symptoms reported Genitourinary No: no symptoms reported. Musculoskeletal No: no symptoms reported. Neurological Yes: tingling. Exam: Admission Vital Signs: 1ST Vital Signs Result Date Time Pulse Ox 92 09/26 2318 B/P 146/95 09/26 2318 Temp 98.6 09/26 2318 Pulse 91 09/26 2318 Resp 22 09/26 2318 O2 Delivery ROOM AIR 09/27 0130 O2 Flow Rate 2 09/27 222 Last Vital Signs: Vital Signs Result Date Time Pulse Ox 95 09/27 407 B/P 134/87 09/27 407 O2 Delivery ROOM AIR 09/27 407 Temp 98.5 09/27 407 Pulse 74 09/27 407 Resp 18 09/27 407 O2 Flow Rate 2 09/27 0222 Exam General appearance: alert, active, no acute distress Neck: no carotid bruit, no JVD Cardiovascular: normal sinus rhythm, PMI normal, regular rate & rhythm Respiratory: decreased breath sounds bilaterally with mild wheezing noted. Splinting of the RIGHT side noted with deep breathing. ABD: soft, no tenderness Extremities: moves all, no peripheral edema Neuro: alert, intact, oriented Laboratory data: Laboratory Tests 09/27/17 0035: Urine Color YELLOW, Urine Appearance CLEAR, Urine pH 6.0, Ur Specific [place] <= 1.005, Urine Protein NEGATIVE, Urine Ketones NEGATIVE, Urine Blood NEGATIVE, Urine Nitrate NEGATIVE, Urine Bilirubin NEGATIVE, Urine Urobilinogen 0.2, Ur Leukocyte Esterase NEGATIVE, Urine RBC NONE, Urine WBC NONE, Ur Squamous Epith Cells OCC, Urine Bacteria NONE, Urine Glucose NEGATIVE 09/26/17 2337: Sodium 134 L, Potassium 3.7, Chloride 98, Carbon Dioxide 25, BUN 9, Creatinine 1.0, Estimated Creat Clear 95, Estimated GFR (MDRD) 76, Glucose 107 H, Calcium 8.9, Total Bilirubin 0.5, AST 40 H, ALT 68, Alkaline Phosphatase 99, Creatine Kinase 99, CK-MB (CK-2) Rel Index 1.5, CK and CKMB Interp 1.5, Troponin I < 0.02 , Total Protein 7.0, Albumin 3.7, Globulin 3.3 H, Albumin/Globulin Ratio 1.1, WBC 10.2, RBC 5.39, Hgb 17.4, Hct 51.3, MCV 95.2, RDW 12.2, Plt Count 197, MPV 7.3 L, Gran % 61.2, Gran # 6.3, Lymphocytes % 26.5, Monocytes % 6.2, Eosinophils % 5.1, Basophils % 1.0, Lymphocytes # 2.7, Monocytes # 0.6, Eosinophils # 0.5 H, Basophils # 0.1, PUBS MCHC 34.0, MCH 32.4 H, Alcohols 108 H Plan Assessment: 1. Syncope, likely vasovagal due to coughing spell. This has been a recurrent problem through the years with coughing or laughing. 2. Abnormal stress test with previous myocardial infarction, high risk abnormal due to anterior abnormality. No appreciable ischemia with normal ejection fraction. 3. Tobacco abuse 4. Hypertension Plan: In light of the syncopal episodes, which are recurrent, and recent abnormal stress test with recent ER visit for chest pain, it is recommended that the patient undergo LEFT heart catheterization. Risk and benefits discussed with the patient, he agrees to proceed. at 1014
--- NOTE | 2017-09-27 07:44 | PHARMACY CLINIC NOTE ---
Patient Demographics Patient Demographics Admission date: 09/27/17 Date: 09/27/17 Time: 0743 Allergies Coded Allergies: Penicillins (Intermediate, I-RASH 06/14/16) HEIGHT- FT: 5 IN: 8.00 K.575 VTE General Information Labs: Laboratory Tests 09/26 2337 Hematology Hgb (14.1 - 18.0 g/dL) 17.4 Hct (42.0 - 52.0 %) 51.3 Plt Count (142 - 424 K/mm3) 197 Disclaimer The following section includes nursing documentation that has been pulled in for pharmacy review. Patient's VTE score: 2 Patient's VTE Risk: VERY LOW RISK Clinical trial participant? No VTE prophylaxis NQF [id number] VTE prophylaxis ordered? Yes Type of prophylaxis/treatment: ROE at 0743
[2017-09-27] MEDS ORDERED: VENTOLIN H0.09 MG/Ac IH (07:57)
--- NOTE | 2017-09-27 08:48 | HISTORY AND PHYSICAL REPORT ---
History and Physical ([facility]) Date of admission: 09/27/17 Chief complaint: cough with syncope History: History of Present Illness: Mr. Roche is a 61-year-old male with a history of chronic obstructive pulmonary disease, and hypertension. He states he had been coughing and was sitting on the edge of the bed last night when he passed out. His found him on the floor and states he was out for approximately 1 minute. When he awoke he presented to the emergency room for evaluation. Upon evaluation in the ER, a stress test was found from approximately a month ago that was positive for a possible myocardial infarction. The patient was admitted overnight for observation and a heart cath this a.m. He denies any pain other than the RIGHT side of his chest where he broke a rib during his fall. Past Medical History: Medical History: CAD? No Angina: No OR: No Hypertension? Yes Hyperlipidemia? No CHF? No DVT? No PE? No COPD? Yes Asthma? Yes Anemia? No GERD? No Gastric ulcers? No GI Bleed? No Hernia? Yes Thyroid Problems? Yes Hypothyroidism? Yes CVA? No Seizures? No Diabetes? No Renal Insuffiency? No UTI? No Stones? No BPH? No GB Disease: No Nephritic Syndrome? No Asplenia? No Hepatitis? No Sickle Cell Disease? No Arthritis? No Migraines? No Cataracts? No Glaucoma? No MRSA? No HIV? No TB? No Anxiety? No Depression? No Cancer? Yes Site: SKIN/FACE More? No Surgical history: Previous Surgery?Y SKIN CANCER TO FACE LEFT SHOULDER HERNIA X 5 COLON RESECTION CARPAL TUNNEL LEFT WRIST Medications: Active Scripts Aspirin (Aspirin Ec) 325 MG PO DAILY #30 ECT Prov: 08/23/17 Reported Medications Albuterol Sulfate (Ventolin Hfa) 1 PUFF IH BID #18 INH Allergies: Coded Allergies: Penicillins (Intermediate, I-RASH 06/14/16) Family History: Family history: Postive for: CAD, HTN, cancer, stroke. Social History: Smoking Hx Tobacco: Yes Smoker: Current Every Day Smoker Type: Cigarettes Packs/day: 2 1/2 - 3 Packs Are you exposed to second hand Yes Alcohol: Alcohol: Yes How much do you drink More Than 10 Drinks/Day For how long Longer Than 5 Years When was your last drink Less Than 12 Hours Ago Hx of Drug Use: Drug Use? No Review of Systems: Constitutional No: fatigue, lethargy, malaise, weak. ENT No: nasal congestion, sore throat. Cardiovascular Positive for: chest pain (on right side, broken rib). No: edema, palpitations. Respiratory Positive for: shortness of air. No: productive cough (sputum), wheezing. GI No: abdominal pain, diarrhea, nausea, vomitting. (male) No: frequency, hematuria. Neurological Positive for: syncope. No: dizziness, headache, weakness. Musculoskeletal Positive for: extremity pain (right elbow from fall). No: myalgias. Physical Exam: Vital signs: 1ST Vital Signs Result Date Time Pulse Ox 92 09/26 2318 B/P 146/95 09/26 2318 Temp 98.6 09/26 2318 Pulse 91 09/26 2318 Resp 22 09/26 2318 O2 Delivery ROOM AIR 09/27 130 O2 Flow Rate 2 09/27 0222 Exam: General appearance: alert, awake, no acute distress Eyes: EOM's w/normal ROM, PERRLA ENT: mucous membranes moist, nose normal, pharynx normal, tympanic membranes normal Neck: non-tender, no carotid bruit, full range of motion, supple Cardiovascular: regular rate & rhythm Respiratory: clear to auscultation, diminished breath sounds ABD: non-distended, normal bowel sounds, no rebound, soft, no tenderness, no guarding Extremities: no peripheral edema Musculoskeletal: equal muscle strength, motor intact, sensation intact, ttp along right chest wall Skin: normal color Neuro: composite engineer II-XII nml as tested, normal mood/affect, oriented, speech clear Lab data: Labs: Laboratory Tests 09/27/17 0710: Troponin I < 0.02, Triglycerides 79, Cholesterol 148, LDL Cholesterol 70.2, VLDL Cholesterol 15.8, HDL Cholesterol 62.0 H 09/27/17 0035: Urine Color YELLOW, Urine Appearance CLEAR, Urine pH 6.0, Ur Specific [place] <= 1.005, Urine Protein NEGATIVE, Urine Ketones NEGATIVE, Urine Blood NEGATIVE, Urine Nitrate NEGATIVE, Urine Bilirubin NEGATIVE, Urine Urobilinogen 0.2, Ur Leukocyte Esterase NEGATIVE, Urine RBC NONE, Urine WBC NONE, Ur Squamous Epith Cells OCC, Urine Bacteria NONE, Urine Glucose NEGATIVE 09/26/17 2337: Sodium 134 L, Potassium 3.7, Chloride 98, Carbon Dioxide 25, BUN 9, Creatinine 1.0, Estimated Creat Clear 95, Estimated GFR (MDRD) 76, Glucose 107 H, Calcium 8.9, Total Bilirubin 0.5, AST 40 H, ALT 68, Alkaline Phosphatase 99, Creatine Kinase 99, CK-MB (CK-2) Rel Index 1.5, CK and CKMB Interp 1.5, Troponin I < 0.02 , Total Protein 7.0, Albumin 3.7, Globulin 3.3 H, Albumin/Globulin Ratio 1.1, WBC 10.2, RBC 5.39, Hgb 17.4, Hct 51.3, MCV 95.2, RDW 12.2, Plt Count 197, MPV 7.3 L, Gran % 61.2, Gran # 6.3, Lymphocytes % 26.5, Monocytes % 6.2, Eosinophils % 5.1, Basophils % 1.0, Lymphocytes # 2.7, Monocytes # 0.6, Eosinophils # 0.5 H, Basophils # 0.1, PUBS MCHC 34.0, MCH 32.4 H, Alcohols 108 H Radiology results: Results: CXR - Acute minimally displaced right fifth rib fracture with some mild underlying pleural thickening Rib x-ray - Minimal displaced right fifth rib fracture Diagnosis(es): 1. Syncope Status: Acute 2. Rib fracture Status: Acute 3. Abnormal thallium stress test Status: Acute 4. Alcohol intoxication Status: Acute 5. COPD (chronic obstructive pulmonary disease) Status: Chronic Plan: Pt to go for a heart cath today. If normal he may be able to be discharged home later on today. at 0847
--- NOTE | 2017-09-27 10:55 | RADIOLOGY REPORT PS360 ---
CARDIAC CATHETERIZATION DATE OF CATHETERIZATION:09/27/2017 10:03 AM PROCEDURES: 1. Left heart catheterization 2. Left ventriculogram 3. Selective coronary angiogram 4. Drug-eluting stent deployment to the proximal LAD 5. Intravascular ultrasound to the LAD INDICATION FOR TEST: 1. Coronary artery disease 2. Abnormal high risk Myoview 3. Unstable angina Informed consent was obtained prior to the procedure. COMPLICATIONS: None ESTIMATED BLOOD LOSS: Less than 10 ml. TECHNIQUE: One percent lidocaine used to anesthetize the right anterior aspect of the wrist. The right radial artery was accessed via the Seldinger technique. A 6 [place] sheath was placed in the right radial artery. 2.5 mg of verapamil, 800 mcg of nitroglycerin and 5000 U Heparin were given through the arterial sheath. The Torri and trap catheter was also used to perform left heart catheterization left ventriculogram and selective coronary angiogram. At the end of the diagnostic angiogram and additional 3000 units of heparin was administered intravenously. The ACT was measured out of range. An leaselock left guide catheter was used intubate the left main artery and the BMW wire was placed distally. A 4 mm x 8 mm resolute Jose stent was deployed at 16 zen reducing the stenosis to 20%. A 4 mm x 6 mm noncompliant balloon was then deployed proximally at 24 zen to post dilate. At the end of the stent deployment intravascular ultrasound probe was then advanced to make sure there is no encroachment upon the diagonal artery and make sure good transitioning was occurring because of the multiple overlapping blood vessels. The intravascular ultrasound demonstrated there is excellent apposition of the stent with good proximal and distal transitioning with no significant encroachment on the very large diagonal artery. At the end of the procedure the sheath was removed good hemostasis was achieved using TR banding patient transferred to the postop holding area in stable condition ANGIOGRAPHIC RESULTS: 1. The left main artery normal 2. The left anterior descending artery has a proximal eccentric 80% stenosis immediately proximal to a very large diagonal artery 3. The circumflex artery is nondominant yet still large and normal 4. The ramus intermedius originates off the very proximal LAD and is normal 5. The right coronary artery is a dominant vessel with mild luminal irregularities 6. The LAUGHLIN ventriculogram reveals normal 65% 7. The left ventricular end-diastolic pressure 10 mmHg IMPRESSION: 1. Severe proximal LAD disease 2. Successful stenting of the proximal LAD severe disease reduced to less than 10% with 1 drug-eluting stent 3. Normal ejection fraction 4. Normal left ventricular end-diastolic pressure PLAN: 1. Brilinta and aspirin 2. LDL less than 55 3. Avoidance of tobacco products 4. Cardiac rehabilitation 5. Risk factor modification
--- NOTE | 2017-09-27 17:38 | RADIOLOGY REPORT PS360 ---
PROCEDURE: 2-D M-mode and color Doppler study INDICATIONS FOR THE TEST: Chest pain X COPD Heart Murmur Tobacco Smoking Palpitations Fatigue SyncopeX Edema Hypertension Diabetes Mellitus Rheumatic Fever SOB HERNANDEZ Obesity Hyperlipidemia Family History HD Additional History ABN GXT PATIENT INFORMATION HEIGHT: 68 WEIGHT:190 GENDER: Male B/P:146/95 2-D/M-MODE INTERPRETATION: 2-D MEASUREMENTS OBSERVED VALUES IN CMS Right Ventricular Dimension (RVDd) 2.0 Interventricular Septum (Thickness)(IVsd) 1.1 Left Ventricular Internal Dimensions(LVIDd) 5.2 Left Ventricular Posterior Wall (Thickness)(LVPWd) .9 Aortic Root 3.7 Aortic Cusp Separation 2.2 Left Atrial Dimensions (LAD) 2.3 2D 1. Left atrium is qualitatively mildly enlarged, left ventricle is normal size, visually estimated ejection fraction approximately 55% with no obvious regional wall motion abnormality. Endocardial surface are somewhat poorly visualized. 2. Right atrium and right ventricle are normal size and contractility. 3. The aortic valve is minimally thickened and fibrosed. Leaflet and aortic root is not well visualized 4. The mitral and tricuspid valvular grossly normal. 6. The pulmonic valve is poorly visualized. 7. No significant pericardial effusion noted. DOPPLER INTERROGATION: Doppler interrogation of the aortic, mitral and tricuspid valvular presence of mild mitral and tricuspid regurgitation, tricuspid and jet velocity insufficient for calculation of the right ventricular systolic pressure, grade 1 diastolic dysfunction seen without tissue Doppler evidence of raised left atrial pressure CONCLUSION: 1. Technically difficult study because of the patient's factor and poor acoustic windows. 2. Mildly enlarged left atrium, normal left ventricular size, visually estimated ejection fraction 55% with no obvious regional wall motion abnormality, endocardial subsequent poorly visualized. Grade 1 diastolic dysfunction seen without tissue Doppler evidence of raised left atrial pressure. 3. Mild mitral and tricuspid regurgitation. 4. No significant pericardial effusion noted.
[2017-09-28] VITALS: BP 133/90
[2017-09-28 02:00] VITALS: BP 128/84
[2017-09-28 04:00] VITALS: BP 137/98
[2017-09-28 05:32] LABS: HEMOGLOBIN 17.7 g/dL (14.1-18.0); LYMPH # 1.8 K/mm3 (0.7-4.5)
[2017-09-28 06:00] VITALS: BP 127/81
--- NOTE | 2017-09-28 08:42 | ACUTE CARE PROGRESS NOTE (QUA) ---
Progress Notes Subjective Date 09/28/17 Time 0838 Note 61 yo WM in chair in NAD. Still with some right sided chest pain with deep breathing/cough due to rib fracture. Objective Findings Last VS-Temp:97.8 B/P:127/81 Pulse:88 Resp:18 SaO2:92 ROOM AIR Last weight lbs:191 oz:9 K.891 Method:Bed Scales Exam General appearance: alert, awake, no acute distress Cardiovascular: regular rate & rhythm Respiratory: diminished breath sounds Extremities: moves all, no peripheral edema Neuro: alert, intact, oriented Reviewed: medications, vital signs, lab results Assessment/Plan Problem List 1. Syncope Status: Acute Qualifiers: Syncope type: unspecified Qualified Code: R55 - Syncope and collapse 2. Rib fracture Status: Acute Qualifiers: Encounter type: initial encounter Rib fracture type: single rib Fracture type: closed Laterality: right Qualified Code: S22.31XA - Fracture of one rib, right side, initial encounter for closed fracture 3. Abnormal thallium stress test Status: Acute 4. Alcohol intoxication Status: Acute Qualifiers: Complication of substance-induced condition: uncomplicated Qualified Code: F10.920 - Alcohol use, unspecified with intoxication, uncomplicated 5. COPD (chronic obstructive pulmonary disease) Status: Chronic Qualifiers: COPD type: unspecified COPD Qualified Code: J44.9 - Chronic obstructive pulmonary disease, unspecified 6. CAD (coronary artery disease) Patient condition Stable Plan: Right wrist cath site ok. OK for discharge on ASA, Brilinta, Metoprolol, lisinopril and atorvastatin. Follow up next week. This inpt stay is expected to cross 2 MNs from start of care Yes at 0842
--- NOTE | 2017-09-28 08:48 | ACUTE CARE PROGRESS NOTE (QUA) ---
Progress Notes Subjective Date 09/28/17 Time 0844 Note Patient had a stent placed in the left anterior descending yesterday. He states he is feeling well today. He has been up and moving around and did eat this morning. He states he slept off and on last night. He is anxious to go home today. Objective Findings Last VS-Temp:97.8 B/P:127/81 Pulse:88 Resp:18 SaO2:92 ROOM AIR Last weight lbs:191 oz:9 K.891 Method:Bed Scales Laboratory Tests 09/28/17 0520: Sodium 137, Potassium 4.4, Chloride 102, Carbon Dioxide 29, BUN 10, Creatinine 1.1, Estimated Creat Clear 83, Estimated GFR (MDRD) 68, Glucose 103, Calcium 9.0 , WBC 11.5 H, RBC 5.29, Hgb 17.7, Hct 51.1, MCV 96.5, RDW 12.4, Plt Count 189, MPV 7.7, Gran % 74.4, Gran # 8.5 H, Lymphocytes % 16.0, Monocytes % 5.4, Eosinophils % 3.5, Basophils % 0.7, Lymphocytes # 1.8, Monocytes # 0.6, Eosinophils # 0.4, Basophils # 0.1, PUBS MCHC 34.6, MCH 33.4 H 09/27/17 1038: POC Activ Clotting Time 274 *H 09/27/17 1024: POC Activ Clotting Time >400 *H Exam General appearance: alert, awake, no acute distress Cardiovascular: regular rate & rhythm Respiratory: clear to auscultation, ttp along right ribs ABD: non-distended, normal bowel sounds, no rebound, soft, no tenderness, no guarding Extremities: no peripheral edema Reviewed: Cath report reviewed Assessment/Plan Problem List 1. Syncope Status: Acute 2. Rib fracture Status: Acute 3. Abnormal thallium stress test Status: Acute 4. Alcohol intoxication Status: Acute 5. COPD (chronic obstructive pulmonary disease) Status: Chronic 6. CAD (coronary artery disease) 7. Status post insertion of drug-eluting stent into left anterior descending ( LAD) artery Plan: Pt has been cleared by cardiology to go home today on ASA, brilinta, metoprolol, lisinopril, and a statin. He will need something for pain for his rib fracture. He will need to f/u with cardiology and with his PCP. This inpt stay is expected to cross 2 MNs from start of care No at 0848
[2017-09-28 08:58] VITALS: BP 127/81
[2017-09-28] MEDS ORDERED: BRILINTA90 MG PO (09:04)
[2017-09-28] MEDS ORDERED: NITROGLYCERIN0.4 MG SL (09:05)
[2017-09-28] MEDS ORDERED: RESTORIL 15MG C15 MG PO (09:05)
[2017-09-28] MEDS ORDERED: ASPIRIN 81MG TA81 MG PO (09:06)
[2017-09-28] MEDS ORDERED: LIPITOR40 M1 PO (09:06)
[2017-09-28] MEDS ORDERED: LOPRESSOR 25MG.25 MG PO (09:07)
[2017-09-28] MEDS ORDERED: LISINOPRIL 5MG T5 MG PO (09:07)
[2017-09-28] MEDS ORDERED: NORCO 325 MG-51 TAB PO (09:08)
[2017-09-28 10:30] VITALS: BP 127/81
--- NOTE | 2017-10-01 16:13 | DISCHARGE SUMMARY STANDARD ---
Discharge Summary ([facility]CA2) Date of admission: 09/27/17 Date of discharge: 09/28/17 Problem List: 1. Syncope 2. Rib fracture 3. Abnormal thallium stress test 4. Alcohol intoxication 5. COPD (chronic obstructive pulmonary disease) 6. CAD (coronary artery disease) 7. Status post insertion of drug-eluting stent into left anterior descending ( LAD) artery History of present illness: Mr. Roche is a 61-year-old male with a history of chronic obstructive pulmonary disease, and hypertension. He stated he had been coughing and was sitting on the edge of the bed when he passed out. His found him on the floor and stated he was out for approximately 1 minute. When he awoke he presented to the emergency room for evaluation. Upon evaluation in the ER, a stress test was found from approximately a month ago that was positive for a possible myocardial infarction. The patient was admitted overnight for observation and a heart cath. He denied any pain other than the RIGHT side of his chest where he broke a rib during his fall. Of note his alcohol level was elevated. Exam on admission: General appearance: alert, awake, no acute distress Eyes: EOM's w/normal ROM, PERRLA ENT: mucous membranes moist, nose normal, pharynx normal, tympanic membranes normal Neck: non-tender, no carotid bruit, full range of motion, supple Cardiovascular: regular rate & rhythm Respiratory: clear to auscultation, diminished breath sounds ABD: non-distended, normal bowel sounds, no rebound, soft, no tenderness, no guarding Extremities: no peripheral edema Musculoskeletal: equal muscle strength, motor intact, sensation intact, ttp along right chest wall Skin: normal color Neuro: alternative dispute resolution mediator II-XII nml as tested, normal mood/affect, oriented, speech clear Hospital Course: The patient had no more syncopal episodes. He had a stent placed in the left anterior descending during his heart cath. By the next day, he stated he was feeling well. He had been up and moving around and was able to eat. He was anxious to go home. Cardiology felt he was stable to discharge home on ASA, Brilinta, Metoprolol, Lisinopril, and atorvastatin. He will f/u with Cardiology. Discharge medications: Stop taking the following medications: Aspirin (Aspirin Ec) 325 MG TABLET. ORAL DAILY Qty = 30 Continue taking these medications: Albuterol Sulfate (Ventolin Hfa) 18 GM HFA.AER.AD 1 PUFF INHALATION TWICE A DAY Qty = 18 Start taking the following new medications: Ticagrelor (Brilinta) 90 MG TABLET 90 MILLIGRAM ORAL TWICE A DAY Qty = 60 Refills = 2 NITROGLYCERIN (Nitrostat) 0.4 MG TAB.SUBL 0.4 MILLIGRAM SUBLINGUAL EVERY FIVE MINUTES NEEDED as needed for CHEST PAIN Qty = 30 Refills = 1 Temazepam (Restoril 15MG) 15 MG CAPSULE 15 MILLIGRAM ORAL AT BEDTIME NEEDED as needed for SLEEP Qty = 20 No Refills ASPIRIN (Aspirin) 81 MG TAB.CHEW 81 MILLIGRAM ORAL DAILY Qty = 100 Refills = 2 Atorvastatin Calcium (Lipitor 40MG) 40 MG TABLET 40 MILLIGRAM ORAL AT BEDTIME NIGHTLY Qty = 30 Refills = 3 Metoprolol Tartrate (Lopressor) 25 MG TABLET 25 MILLIGRAM ORAL TWICE A DAY Qty = 60 Refills = 3 LISINOPRIL (Lisinopril) 5 MG TABLET 5 MILLIGRAM ORAL DAILY Qty = 30 Refills = 3 HYDROCODONE/ACETAMINOPHEN (Mcneal 5-325 Tablet) 1 EACH TABLET 1 TABLET ORAL EVERY 6 HOURS NEEDED as needed for rib pain Qty = 15 No Refills Disposition: F/U with: Hank Martini MD Follow up: 7 DAYS Activity: Limited activity Diet: Continue same diet Discharge to: HOME Agency needed? N at 1619
== END 2017-09-28 10:25 | disposition home or self-care (01) ==
LOC: ER 23:13 → 2ND 09-27 00:43
PROVIDERS: Emergency Medicine; Internal Medicine
PROC: B2111ZZ Fluoroscopy of Multiple Coronary Arteries using Low Osmolar Contrast (ICD-10-PCS; 2017-09-27)
PROC: B2151ZZ Fluoroscopy of Left Heart using Low Osmolar Contrast (ICD-10-PCS; 2017-09-27)
PROC: B246ZZ3 Ultrasonography of Right and Left Heart, Intravascular (ICD-10-PCS; 2017-09-27)
PROC: 027034Z Dilation of Coronary Artery, One Artery with Drug-eluting Intraluminal Device, Percutaneous Approach (ICD-10-PCS; 2017-09-27)
PROC: 4A023N7 Measurement of Cardiac Sampling and Pressure, Left Heart, Percutaneous Approach (ICD-10-PCS; principal; 2017-09-27 11:45)
DX: I25.110 Atherosclerotic heart disease of native coronary artery with unstable angina pectoris (principal); Z72.0 Tobacco use; R94.39 Abnormal result of other cardiovascular function study; R55 Syncope and collapse; S22.31XA Fracture of one rib, right side, initial encounter for closed fracture; I10 Essential (primary) hypertension; J44.9 Chronic obstructive pulmonary disease, unspecified; F10.920 Alcohol use, unspecified with intoxication, uncomplicated; W06.XXXA Fall from bed, initial encounter
CPT/HCPCS: C1725; C1769; C1876; G0378; J1644; Q9967

== ENCOUNTER → 2017-10-12 | Outpatient (CLI) | payer BC ==
[~2017-10-12] MED LIST changes: +ASPIRIN 81MG TA81 MG PO; +BRILINTA90 MG PO; +LIPITOR40 M1 PO; +LISINOPRIL 5MG T5 MG PO; +LOPRESSOR 25MG.25 MG PO; +NITROGLYCERIN0.4 MG SL; +NORCO 325 MG-51 TAB PO; +RESTORIL 15MG C15 MG PO; +VENTOLIN H0.09 MG/Ac IH
--- NOTE | 2017-10-12 13:39 | CARDIOVASCULAR REPORT ---
"Cerebrovascular Exam Indications: 433.10 Occlusion/stenosis of carotid artery without cerebral infarction. IMPRESSIONS 1. The bilateral vertebral arteries are patent with normal antegrade flow. 2. Study suggests less than 20% stenosis involving the right internal carotid artery and the left internal carotid artery. No change from the study of 06-Mar-2016. History: Coronary artery disease. Risk factors: Hypertension. Carotid duplex study. Complete study and Doppler flow study including spectral analysis, color and mcmullen scale imaging. Location: Vascular laboratory. Patient status: Outpatient. Tables: Arterial flow: + +--------+--------+ |Location |V sys |V ed | + +--------+--------+ |Right CCA - proximal|56.6cm/s|17.3cm/s| + +--------+--------+ |Right CCA - distal |74.6cm/s|21.2cm/s| + +--------+--------+ |Right ECA |55.8cm/s|--------| + +--------+--------+ |Right ICA - proximal|47.1cm/s|18.9cm/s| + +--------+--------+ |Right ICA - mid |59.7cm/s|24.4cm/s| + +--------+--------+ |Right ICA - distal |55.8cm/s|-22cm/s | + +--------+--------+ |Right vertebral |26.7cm/s|--------| + +--------+--------+ |Left CCA - proximal |63.6cm/s|17.3cm/s| + +--------+--------+ |Left CCA - distal |66cm/s |19.6cm/s| + +--------+--------+ |Left ECA |49.5cm/s|--------| + +--------+--------+ |Left ICA - proximal |49.5cm/s|15.7cm/s| + +--------+--------+ |Left ICA - mid |43.4cm/s|17.7cm/s| + +--------+--------+ |Left ICA - distal |51.1cm/s|21.2cm/s| + +--------+--------+ |Left vertebral |24.4cm/s|--------| + +--------+--------+ Velocity ratios: + + + + + + | |Right, V sys|Right, V ed|Left, V sys|Left, V ed| + + + + + + |Max ICA/dist CCA|0.8 |1.15 |0.77 |1.08 | + + + + + + (Report amended ) Electronically signed by: Tera Stein [id number]"
== END ==
LOC: RT 11:15
DX: I65.23 Occlusion and stenosis of bilateral carotid arteries (principal); I25.10 Atherosclerotic heart disease of native coronary artery without angina pectoris